=== PATIENT | female | born 1985 | race Hispanic/Latino ===

== ENCOUNTER 2022-04-21 18:47 | Inpatient (IN) | payer OTHER ==
[~2022-04-21] VITALS: Ht 147.3 cm; Wt 68.9 kg
[2022-04-21 18:49] VITALS: BP 116/69
[2022-04-21 19:47] LABS: AMPHET/METH SCREEN,URINE NEGATIVE (NEGATIVE); BARBITURATE SCREEN, URINE NEGATIVE (NEGATIVE); BENZODIAZEPINES SCREEN,URINE NEGATIVE (NEGATIVE); BILIRUBIN,URINE Negative (NEGATIVE); CANNABINOID SCREEN,URINE NEGATIVE (NEGATIVE); COCAINE SCREEN,URINE NEGATIVE (NEGATIVE); COLOR,URINE Yellow (YELLOW); GLUCOSE, URINE (UA) Negative (NEGATIVE); KETONES,URINE Negative (NEGATIVE); LEUKOCYTE ESTERASE ,URINE Trace (NEGATIVE); NITRATE,URINE Negative (NEGATIVE); OCCULT BLOOD,URINE Large (NEGATIVE); OPIATE SCREEN,URINE NEGATIVE (NEGATIVE); PH,URINE 6.5 (5.0-8.0); PHENCYCLIDINE SCREEN,URINE NEGATIVE (NEGATIVE); PROTEIN,URINE Negative (NEGATIVE); UROBILINOGEN,URINE 0.2 mg/dL (0.2-1.0)
[2022-04-21 19:57] LABS: APPEARANCE,URINE HAZY (CLEAR)
[2022-04-21 20:06] LABS: BACTERIA,URINE Rare /HPF (None Seen); SQUAMOUS EPITHELIAL CELL,UR 0-2 /HPF (0-2); WBC,URINE None Seen /HPF (0-1)
[2022-04-21] MEDS ORDERED: MAGNESIUM 4GM PREMIX 100ML 100 ML IV SCH ×2 (21:00)
[2022-04-21] MEDS ORDERED: CALCIUM GLUC 1GM/10ML VIAL IV PRN ×2 (21:00)
[2022-04-21] MEDS ORDERED: MAGNESIUM SULFATE 40GM/1000ML 1,000 ML IV PRN (21:00)
[2022-04-21] MEDS ORDERED: MAGNESIUM 4GM PREMIX 100ML 100 ML IV ONE (21:09)
[2022-04-21] MEDS ORDERED: MAGNESIUM SULFATE 40GM/1000ML 1,000 ML IV ONE (21:09)
[2022-04-21] MEDS ORDERED: DEXAMETHASONE SOD PHOSPHATE 4 MG/ML 1ML VIAL ONE (21:42)
[2022-04-22] MEDS ORDERED: DEXAMETHASONE SOD PHOSPHATE 4 MG/ML 1ML VIAL IV SCH
[2022-04-22] MEDS: LACTATED RINGERS 1000ML 1,000 ML IV SCH ×3 (00:22→17:15)
[2022-04-22] MEDS ORDERED: DEXAMETHASONE SOD PHOSPHATE 4 MG/ML 1ML VIAL ONE (09:20)
[2022-04-22] MEDS: DEXAMETHASONE SOD PHOSPHATE 4 MG/ML 1ML VIAL IM SCH ×2 (09:24→16:00)
[2022-04-22] MEDS ORDERED: AMPICILLIN 2GM+NS 100ML 100 ML IV SCH (18:30)
[2022-04-22] MEDS: AMPICILLIN 1GM+NS 50ML 50 ML IV SCH (23:07)
[2022-04-23] MEDS: AMPICILLIN 1GM+NS 50ML 50 ML IV SCH ×2 (03:05→06:20)
== END 2022-04-23 10:30 | disposition home or self-care (01) | DRG 833 ==
LOC: EDH 18:47 → LDH 18:48 → OBSVTOIN 18:48 → INTOOBSV 18:48
PROVIDERS: ADMIT Obstetrics & Gynecology; ATTEND Obstetrics & Gynecology
DX: O26.893 Other specified pregnancy related conditions, third trimester (principal); Z3A.34 34 weeks gestation of pregnancy
CPT/HCPCS: 76805; 76815; 80305; 81001; A4344; G0378; J0290; J1100; J3475; J7120